=== PATIENT | male | born 1960 | race Caucasian/White ===

== ENCOUNTER 2018-07-03 18:07 | Emergency (ER) | payer BC, MEDICAID ==
[~2018-07-03] VITALS: Ht 175.3 cm; Wt 88.5 kg
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
--- NOTE | 2018-07-03 19:14 | NUR ---
Report given to kuldeep abdalla for JERALD.
[2018-07-03] MEDS ORDERED: ONDANSETRON 4 MG TAB.RAPDIS SL ONE (19:30)
[2018-07-03] MEDS ORDERED: HYDROCODONE/APAP 5/325MG 1 EACH TABLET PO ONE (19:30)
--- NOTE | 2018-07-03 19:45 | NUR ---
Pt medically cleared of hard c-collar precautions by TOBI Dickey w/ resp even & unlabored, nad noted. pt medicated as ordered for continued neck w/ back pain.
--- NOTE | 2018-07-03 19:49 | NUR ---
Patient discharged to home in stable condition. Written and verbal after care instructions given along w/ prescriptions and instructed not to drive while on pain medications. Patient verbalizes understanding of instruction.
[2018-07-03 19:50] VITALS: BP 140/68
== END 2018-07-03 19:51 | disposition home or self-care (01) ==
LOC: ER 18:08
DX: S16.1XXA Strain of muscle, fascia and tendon at neck level, initial encounter (principal); R07.2 Precordial pain; Z96.89 Presence of other specified functional implants; M54.5 Low back pain; V43.62XA Car passenger injured in collision with other type car in traffic accident, initial encounter; Y93.89 Activity, other specified; Y92.410 Unspecified street and highway as the place of occurrence of the external cause; Y99.8 Other external cause status
CPT/HCPCS: 71111; 72125; 99284; A4606; L0172; Q0162; Z7610